=== PATIENT | female | born 1985 | race Caucasian/White ===

== ENCOUNTER 2017-03-22 06:46 | Day surgery (SDC) | payer OTHER ==
[~2017-03-22 06:46] MED LIST: CEFAZOLIN SODIUM 2 GRAM PREMIX 100 ML IV ONE; IV START KIT ONE; LACTATED RINGERS 1,000 ML ONE
[2017-03-22] MEDS ORDERED: LACTATED RINGERS 1,000 ML IV SCH ×3 (07:01→10:57)
[2017-03-22] MEDS ORDERED: CEFAZOLIN SODIUM 2 GRAM DUPLEX 2 G in Premix (D5W) 50 ml 1 EACH IV PRN (07:01)
[2017-03-22] MEDS ORDERED: LIDOCAINE 1% 2 ML VIAL ID PRN (07:01)
[2017-03-22] MEDS ORDERED: LIDOCAINE 1% (PRES FREE) 30 ML VIAL ONE (08:33)
[2017-03-22] MEDS ORDERED: PROPOFOL 40 ML IV ONE (08:33)
[2017-03-22] MEDS ORDERED: MIDAZOLAM HCL 1 MG/ML 2ML VIAL ONE (08:35)
[2017-03-22] MEDS ORDERED: FENTANYL 100 MCG/2 ML VIAL ONE (08:36)
[2017-03-22] MEDS ORDERED: SUCCINYLCHOLINE CHL 20 MG/ML DOSE ONE (09:25)
[2017-03-22] MEDS ORDERED: PROPOFOL 20 ML IV ONE (09:27)
[2017-03-22] MEDS ORDERED: DEXAMETHASONE SOD PHOS 4 MG/1 ML VIAL ONE (09:29)
[2017-03-22] MEDS ORDERED: ONDANSETRON 4 MG/2ML 2 ML VIAL ONE (09:29)
[2017-03-22] MEDS ORDERED: ATROPINE SULFATE 0.4 MG/1 ML VIAL IV PRN (09:53)
[2017-03-22] MEDS ORDERED: MEPERIDINE 25 MG/ML SYRINGE IV PRN (09:53)
[2017-03-22] MEDS ORDERED: NALOXONE HCL 0.4 MG/ML VIAL IV PRN (09:53)
[2017-03-22] MEDS ORDERED: ONDANSETRON 4 MG/2ML 2 ML VIAL IV PRN (09:53)
[2017-03-22] MEDS ORDERED: FENTANYL 100 MCG/2 ML VIAL IV PRN (09:53)
[2017-03-22] MEDS ORDERED: KETOROLAC TROMETHAMINE 30 MG/ML 1 ML VIAL IV ONE (09:53)
[2017-03-22] MEDS ORDERED: LABETALOL HCL 5 MG/ML 20ML VIAL IV PRN (09:53)
[2017-03-22] MEDS ORDERED: HYDRALAZINE HCL 20 MG/1 ML VIAL IV PRN (09:53)
[2017-03-22] MEDS ORDERED: PROMETHAZINE HCL 25 MG/ML VIAL IM PRN (09:53)
[2017-03-22] MEDS ORDERED: HYDROMORPHONE HCL 1 MG/ML SYRINGE IV PRN (09:53)
[2017-03-22] MEDS ORDERED: KETOROLAC TROMETHAMINE 30 MG/ML 1 ML VIAL ONE (10:48)
[2017-03-22] MEDS ORDERED: DIPHENHYDRAMINE HCL 50 MG/1 ML VIAL IV PRN (10:57)
[2017-03-22] MEDS ORDERED: ACETAMINOPHEN 325 MG TABLET PO PRN (10:57)
[2017-03-22] MEDS ORDERED: HYDROCODONE/ACETAMINOPHEN 5/325MG TABLET PO PRN (10:57)
[2017-03-22] MEDS ORDERED: HYDROMORPHONE HCL 1 MG/ML SYRINGE ONE (11:10)
[2017-03-22] MEDS ORDERED: HYDROMORPHONE HCL 0.5 MG/0.5 ML SYRINGE IV ONE (11:24)
--- NOTE | 2017-03-22 11:45 | HP ---
Radha Bar [id number] DATE OF PROCEDURE: 03/22/2017 PREOPERATIVE DIAGNOSIS: Uterine polyp. PROCEDURE: Hysteroscopic polypectomy and dilation and curettage. HISTORY AND PHYSICAL: The patient is a 31-year-old 2, para 2 who desired to become a surrogate with in vitro fertilization. Upon preevaluation for this procedure she had a sonohysterogram which showed a uterine polyp, this was measured 5 x 3 mm at the left aspect of the fundus. Patient is otherwise asymptomatic, however, this polyp is required for removal with pathology for the surrogacy program. PAST MEDICAL HISTORY: Patient has had section x2. She had wisdom teeth removal. She is not currently on contraception, however, had previously used a intrauterine device. She denies any history of abnormal pap smears or sexually transmitted disease. ALLERGIES: SHE IS ALLERGIC TO AZITHROMYCIN. MEDICATIONS: She is not taking any other medications at this time. PHYSICAL EXAMINATION: GENERAL: Patient is in no apparent distress. HEART: Regular rate and rhythm. LUNGS: Clear to auscultation bilaterally. ABDOMEN: Nontender and nondistended with no masses. PELVIC: Showed normal external genitalia. The vagina is normal. Cervix is closed mobile and nontender. The uterus is mobile, anteverted, and nontender and there is no adnexal masses. LABORATORY STUDIES: Showed a negative serum test. Her preoperative hemoglobin is 12.2 and creatinine is 0.6. ASSESSMENT AND PLAN: This is a 31-year-old with a uterine polyp. We plan for hysteroscopy with polypectomy, dilation and curettage. Procedure indications and risks have been reviewed including risk of bleeding, infection, uterine perforation, electrolyte abnormalities. Preoperative instructions and postoperative expectations have been reviewed and we will confirm to have pathology report available postoperatively. JOB: [id number]
[2017-03-22] MEDS ORDERED: HYDROCODONE/ACETAMINOPHEN 5/325MG TABLET ONE (11:56)
--- NOTE | 2017-03-22 12:11 | OP ---
Radha Bar [id number] DATE OF PROCEDURE: 03/22/2017 PREOPERATIVE DIAGNOSIS: Uterine polyp. POSTOPERATIVE DIAGNOSIS: Uterine polyp. PROCEDURE: Hysteroscopy with polypectomy and dilation and curettage. SURGEON: Parmjit Manjarrez MD. ANESTHESIA: General. ESTIMATED BLOOD LOSS: Minimal approximately 5 mL. COMPLICATIONS: None. 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 OPERATIVE COURSE: The patient is taken to the operating room and placed under general anesthesia. The patient was placed in lithotomy and prepped and draped in a sterile fashion. Bladder was emptied with a straight catheter. A weighted speculum was then placed and the cervix was grasped with a single tooth tenaculum and elevated. The cervix was then sequentially dilated to accommodate the hysteroscope. The hysteroscope was then placed and the uterus was distended with saline fluid. The uterine cavity was then examined. The fundus appeared normal and both cornual appeared normal. There was not a uterine polyp noted at the fundus, however, posteriorly there appeared to be some polypoid material. A MyoSure was then placed and using this instrument the posterior aspect of the uterus was then cleared of this material. Further photographs were then taken which showed a clear endometrium with no other masses or lesions. The hysteroscope was then removed and a gentle sharp curettage was then performed for endometrial sampling which is also sent to pathology. All instruments were then removed at this point. The patient was hemostatic and recovered from anesthesia and taken to the recovery room in stable condition. JOB: [id number]
[2017-03-22] MEDS ORDERED: IBUPROFEN 800 MG TABLET PO PRN (16:00)
--- NOTE | 2017-03-26 14:04 | SURGPATH ---
[facility] [address] [place] [id number] Patient Name: HECTOR GIANG MR#: [id number] : 1985 Gender: F Specimen #: [id number] Collected: 03/22/2017 Received: 03/25/2017 Reported: 03/26/2017 Submitting Phys: JOSIAS NARVAEZ Copy To Phys: [facility] Clinical History / Pre-Operative Diagnosis: UTERINE POLYP Specimen Source / Surgical Procedure Performed: ENDOMETRIAL CURETTINGS Interpretation: ENDOMETRIUM, CURETTINGS: - FRAGMENTS OF ENDOMETRIAL POLYPS WITH ASSOCIATED SECRETORY ENDOMETRIUM AND ENDOCERVICAL MUCOSA. - NO EVIDENCE OF CHRONIC ENDOMETRITIS, FLAT HYPERPLASIA, OR MALIGNANCY. Electronically Signed Out Javier Case M.D., Ph.D. Gross Description: The specimen is received in a formalin filled container labeled with the patient's name and "endometrial curettings". An aggregate of lazcano tissue admixed with hemorrhagic material is 1.8 x 1.3 x 0.6 cm. Totally embedded in one cassette. Daniel Brar, P.A. Microscopic Description: Examination of multiple levels from the endometrium curetting shows polypoid shaped fragments of endometrium with fibrotic stroma and thick walled blood vessels associated with fragments of secretory endometrium and endocervical mucosa. There is no evidence of chronic endometritis, flat hyperplasia, or malignancy. 1: 03167 N84.0
== END 2017-03-22 13:05 | disposition home or self-care (01) ==
LOC: SDC 06:46
PROVIDERS: ATTEND Obstetrics & Gynecology
PROC: 0UB98ZX Excision of Uterus, Via Natural or Artificial Opening Endoscopic, Diagnostic (ICD-10-PCS; principal; 2017-03-22)
PROC: 0UDB8ZX Extraction of Endometrium, Via Natural or Artificial Opening Endoscopic, Diagnostic (ICD-10-PCS; 2017-03-22)
DX: N84.0 Polyp of corpus uteri (principal); Z88.1 Allergy status to other antibiotic agents
CPT/HCPCS: 58558; J1170; J3010 ×2; J1100; J1885; J2250; J2001; J2405; J7120; A9270; J0690